=== PATIENT | female | born 1985 | race African-American/Black ===

== ENCOUNTER 2023-06-22 01:55 | Emergency (ER) | payer MEDICAID, OTHER ==
[~2023-06-22] VITALS: Ht 165.1 cm; Wt 69.0 kg
[2023-06-22 02:06] VITALS: O2SAT 96
[2023-06-22 04:00] VITALS: BP 104/63; PULSE 89; RESP 20; TEMP 98.3
== END 2023-06-22 04:22 | disposition home or self-care (01) ==
LOC: ER 01:55
DX: O26.892 Other specified pregnancy related conditions, second trimester (principal); S39.91XA Unspecified injury of abdomen, initial encounter; V49.9XXA Car occupant (driver) (passenger) injured in unspecified traffic accident, initial encounter; Y93.89 Activity, other specified; Y92.89 Other specified places as the place of occurrence of the external cause; Y99.8 Other external cause status; Z3A.18 18 weeks gestation of pregnancy
CPT/HCPCS: 76805; 99284